=== PATIENT | female | born 1970 | race African-American/Black ===

== ENCOUNTER 2017-07-12 11:45 | Emergency (ER) | payer MEDICAID ==
[~2017-07-12] VITALS: Ht 167.6 cm; Wt 65.0 kg
[2017-07-12] MEDS ORDERED: ONDANSETRON HCL 4MG/2ML VIAL IV STA (12:31)
[2017-07-12] MEDS ORDERED: SODIUM CHLORIDE 0.9% 1,000 ML IV ONE (12:31)
[2017-07-12 13:10] LABS: BASOPHILS % 0.6 % (0.0-2.0); EOSINOPHILS % 3.6 % (0.0-5.0); HEMATOCRIT. 43.2 % (36.0-48.0); HEMOGLOBIN. 14.5 g/dL (12.0-16.0); LYMPHOCYTES % 21.8 % (20.0-50.0); MEAN CORPUSCULAR HEMOGLOBIN 28.2 pg (28.0-32.0); MEAN CORPUSCULAR VOLUME 84.1 fL (81.0-99.0); MEAN PLATELET VOLUME 7.8 fl (7.4-10.4); MONOCYTES % 8.9 % (2.0-8.0); NEUTROPHILS % 65.1 % (40.0-76.0); PLATELET 458 x1000/uL (130-400); RED BLOOD CELL COUNT 5.14 mill/uL (4.2-5.4); RED CELL DISTRIBUTION WIDTH 13.6 % (11.6-14.6)
[2017-07-12 13:16] LABS: CHLORIDE 110 mEq/L (98-107)
[2017-07-12 13:23] LABS: HCG SCREEN NEGATIVE
[2017-07-12 14:36] VITALS: BP 107/70
== END 2017-07-12 14:37 | disposition home or self-care (01) ==
LOC: ER 12:06
DX: J45.901 Unspecified asthma with (acute) exacerbation (principal); F17.200 Nicotine dependence, unspecified, uncomplicated; M79.672 Pain in left foot; M79.671 Pain in right foot
CPT/HCPCS: 36415; 80053; 83605; 83690; 84703; 85025; 93005; 96361; 96374; 99285; J2405; J7030

== ENCOUNTER 2021-12-28 03:25 | Inpatient (IN) | payer OTHER, MEDICAID ==
[~2021-12-28] VITALS: Ht 165.1 cm; Wt 49.9 kg
[2021-12-28] VITALS (7 sets, daily range): BP systolic 102–120; BP diastolic 61–72
[2021-12-28] MEDS ORDERED: METHYLPREDNISOLONE SOD SUCC 125 MG/2 ML VIAL IV STA (03:36)
[2021-12-28] MEDS ORDERED: ALBUTEROL (0.083%) 2.5MG/3ML NEB HHN STA (03:36)
[2021-12-28] MEDS ORDERED: IPRATROPIUM BROMIDE (0.02%) 0.5MG/2.5ML NEB HHN STA (03:36)
[2021-12-28] MEDS ORDERED: SODIUM CHLORIDE 0.9% 1,000 ML IV ONE (03:45)
[2021-12-28 04:39] LABS: BASOPHILS % 0.4 % (0.0-2.0); EOSINOPHILS % 0.3 % (0.0-5.0); HEMATOCRIT. 39.3 % (36.0-48.0); HEMOGLOBIN. 12.7 g/dL (12.0-16.0); MEAN CORPUSCULAR HEMOGLOBIN 28.7 pg (28.0-32.0); MEAN CORPUSCULAR VOLUME 88.9 fL (81.0-99.0); MEAN PLATELET VOLUME 7.9 fl (7.4-10.4); MONOCYTES % 4.4 % (2.0-8.0); NEUTROPHILS % 85.9 % (40.0-76.0); PLATELET 415 x1000/uL (130-400); RED BLOOD CELL COUNT 4.42 mill/uL (4.2-5.4); RED CELL DISTRIBUTION WIDTH 13.1 % (11.6-14.6)
[2021-12-28 04:49] LABS: CHLORIDE 105 mEq/L (98-107)
[2021-12-28] MEDS ORDERED: LEVOFLOXACIN 750MG PREMIX 150 ML IV ONE (05:30)
[2021-12-28 05:48] LABS: PROTHROMBIN TIME 11.2 sec (9.6-11.0)
[2021-12-28] MEDS: ACETAMINOPHEN 325MG TABLET PO PRN ×2 (09:59→15:45)
[2021-12-28] MEDS ORDERED: ONDANSETRON HCL 4MG/2ML INJ IV PRN (10:00)
[2021-12-28] MEDS ORDERED: METHYLPREDNISOLONE SOD SUCC 40 MG/ML VIAL IV SCH (10:00)
[2021-12-28] MEDS: GUAIFENESIN-DM 200MG-20MG/10ML UDC PO PRN (15:44)
[2021-12-28] MEDS: METHYLPREDNISOLONE SOD SUCC 40 MG/ML VIAL IV SCH ×2 (15:45→23:15)
[2021-12-28] MEDS: IPRATROPIUM/ALBUTEROL 0.5-3(2.5)MG/3ML NEB HHN SCH ×2 (16:29→20:46)
[2021-12-28 18:59] LABS: *AMPHETAMINES SCREEN URINE NEGATIVE (NEGATIVE); *BARBITURATES SCREEN URINE NEGATIVE (NEGATIVE); *BENZODIAZEPINES SCREEN URINE NEGATIVE (NEGATIVE); *COCAINE SCREEN URINE PRESUMTIVE POSITIVE (NEGATIVE); CANNABINOID URINE SCREEN NEGATIVE (NEGATIVE); METHADONE URINE SCREEN NEGATIVE (NEGATIVE); OPIATES URINE SCREEN PRESUMTIVE POSITIVE (NEGATIVE); PHENCYCLIDINE URINE SCREEN NEGATIVE (NEGATIVE)
[2021-12-29] VITALS (13 sets, daily range): BP systolic 102–122; BP diastolic 58–74
[2021-12-29] MEDS: IPRATROPIUM/ALBUTEROL 0.5-3(2.5)MG/3ML NEB HHN SCH ×4 (02:37→20:25)
[2021-12-29] MEDS: METHYLPREDNISOLONE SOD SUCC 40 MG/ML VIAL IV SCH ×3 (05:25→21:21)
[2021-12-29] MEDS: GUAIFENESIN-DM 200MG-20MG/10ML UDC PO PRN ×3 (05:42→21:20)
[2021-12-29] MEDS ORDERED: LEVOFLOXACIN 500MG PREMIX 100 ML IV SCH ×2 (06:00→10:00)
[2021-12-29 06:40] LABS: HEMATOCRIT. 35.9 % (36.0-48.0); HEMOGLOBIN. 11.6 g/dL (12.0-16.0); MEAN CORPUSCULAR VOLUME 86.8 fL (81.0-99.0); MEAN PLATELET VOLUME 7.8 fl (7.4-10.4); PLATELET 461 x1000/uL (130-400); RED BLOOD CELL COUNT 4.13 mill/uL (4.2-5.4)
[2021-12-29 06:52] LABS: CHLORIDE 108 mEq/L (98-107)
[2021-12-29] MEDS: ACETAMINOPHEN 325MG TABLET PO PRN (08:43)
[2021-12-29 11:46] LABS: ATYPICAL LYMPHOCYTES 1
[2021-12-29 11:47] LABS: PLATELET ESTIMATE SLIGHTLY INCREASED
[2021-12-29] MEDS ORDERED: P20 MT (20:22)
[2021-12-29] MEDS ORDERED: LEVO500T90 MT (20:22)
== END 2021-12-29 23:39 | disposition home or self-care (01) | DRG 871 ==
LOC: ER 03:50 → 5EST 06:31 → EDBEDREQ 07:29 → EDBEDREQTM 07:29 → ENRESERV 07:43 → 5EST 11:49
PROVIDERS: ADMIT Internal Medicine; ATTEND Internal Medicine
DX: A41.9 Sepsis, unspecified organism (principal); E43 Unspecified severe protein-calorie malnutrition; J96.01 Acute respiratory failure with hypoxia; J18.9 Pneumonia, unspecified organism; J44.1 Chronic obstructive pulmonary disease with (acute) exacerbation; Z68.1 Body mass index [BMI] 19.9 or less, adult; J44.0 Chronic obstructive pulmonary disease with (acute) lower respiratory infection; Z20.822 Contact with and (suspected) exposure to COVID-19; F14.90 Cocaine use, unspecified, uncomplicated; J40 Bronchitis, not specified as acute or chronic
CPT/HCPCS: 36415; 71045; 80048; 80053; 80305; 84484; 85025; 87426; 93005; 94640; 94644; 94664; 99285; C1893; C9803; J1956; J2920; J2930; J7030

== ENCOUNTER 2022-02-01 00:46 | Emergency (ER) | payer OTHER, MEDICAID ==
[~2022-02-01] VITALS: Ht 180.3 cm; Wt 57.0 kg
[~2022-02-01 00:46] MED LIST: LEVO500T90 MT; P20 MT
[2022-02-01] MEDS: LIDOCAINE HCL 1% 20ML VIAL (Pyxis) INJ INFIL ONE (03:30)
[2022-02-01] MEDS: LIDOCAINE HCL 1% 10 MG/ML 10ML VIAL IJ NR (03:45)
[2022-02-01] MEDS ORDERED: LIDOCAINE HCL 1% 20ML VIAL (Pyxis) INJ INFIL NR (03:45)
[2022-02-01 07:25] VITALS: BP 120/80
[2022-02-01] MEDS ORDERED: IBUP-2029 MT (07:25)
[2022-02-01] MEDS ORDERED: CEPH500T MT (07:27)
== END 2022-02-01 08:01 | disposition home or self-care (01) ==
LOC: ER 00:46
DX: S01.511A Laceration without foreign body of lip, initial encounter (principal); J45.909 Unspecified asthma, uncomplicated; X94.1XXA Assault by hunting rifle, initial encounter; Y93.9 Activity, unspecified; Y92.89 Other specified places as the place of occurrence of the external cause; Y99.8 Other external cause status
CPT/HCPCS: 70450; 70486; 81025; 99284; J3490

== ENCOUNTER 2022-02-08 02:09 | Emergency (ER) | payer OTHER, MEDICAID ==
[~2022-02-08] VITALS: Ht 180.3 cm; Wt 56.0 kg
[~2022-02-08 02:09] MED LIST changes: +CEPH500T MT; +IBUP-2029 MT
[2022-02-08 02:21] VITALS: BP 138/87
== END 2022-02-08 04:13 | disposition home or self-care (01) ==
LOC: ER 02:09
DX: Z48.00 Encounter for change or removal of nonsurgical wound dressing (principal)
CPT/HCPCS: 99281